=== PATIENT | female | born 2000 | race African-American/Black ===

== ENCOUNTER 2022-06-26 09:23 | Observation (INO) | payer OTHER ==
[~2022-06-26] VITALS: Ht 175.3 cm; Wt 77.5 kg
[~2022-06-26 09:23] MED LIST: ceFAZolin SOD 2 GM in IV 1 EA IV ONE
[2022-06-26 10:22] LABS: HEMATOCRIT 35.6 % (36.0-47.0); HEMOGLOBIN 10.8 g/dl (12.0-15.5); MEAN CORPUSCULAR HEMOGLOBIN 24.2 pg (27.0-33.0); MEAN CORPUSCULAR HGB CONC 30.3 g/dl (32.0-36.5); MEAN CORPUSCULAR VOLUME 79.8 fl (80.0-96.0); PLATELET COUNT, AUTOMATED 292 10^3/uL (150-450); RED BLOOD COUNT 4.46 10^6/uL (4.00-5.40); WHITE BLOOD COUNT 6.8 10^3/uL (4.0-10.0)
[2022-06-26 10:45] LABS: BLOOD UREA NITROGEN 13 MG/DL (7-18); CARBON DIOXIDE LEVEL 27 MEQ/L (21-32); CHLORIDE LEVEL 106 MEQ/L (98-107); CREATININE FOR GFR 0.66 MG/DL (0.55-1.30); GLOMERULAR FILTRATION RATE > 60.0 (>60); GLUCOSE, FASTING 90 MG/DL (70-100); SODIUM LEVEL 137 MEQ/L (136-145)
[2022-06-26] MEDS ORDERED: ROCURONIUM BROMIDE 50 MG/5 ML VIAL As Ordered ONE ×2 (11:02→15:50)
[2022-06-26] MEDS ORDERED: dexameTHASONE 4 MG/ML 1ML VIAL (J1100 PER 1MG) As Ordered ONE (11:02)
[2022-06-26] MEDS ORDERED: fentaNYL 250 MCG/5 ML INJECTION As Ordered ONE (11:02)
[2022-06-26] MEDS ORDERED: propofoL 200 MG/20 ML VIAL As Ordered ONE (11:02)
[2022-06-26] MEDS ORDERED: ONDANSETRON 4MG 2ML VIAL As Ordered ONE (11:02)
[2022-06-26] MEDS ORDERED: LIDOCAINE 2% 100MG/5ML SDV (FOR ANES.) As Ordered ONE (11:02)
[2022-06-26] MEDS ORDERED: MIDAZOLAM INJ 2MG/2ML VIAL (J2250 PER 1MG) As Ordered ONE (11:02)
[2022-06-26] MEDS ORDERED: METOCLOPRAMIDE INJ 10MG/2ML VIAL (J2765 PER 1) As Ordered ONE (11:12)
[2022-06-26] MEDS ORDERED: diphenhydrAMINE 50MG/ML VIAL (J1200) As Ordered ONE (11:12)
[2022-06-26] MEDS ORDERED: BUPIVACAINE HCL 0.25% 10ML VIAL As Ordered ONE (13:43)
[2022-06-26] MEDS ORDERED: BUPIVACAINE LIPOSOME/PF 1.3% 20ML VIAL (13.3MG/ML)(EXPAREL) As Ordered ONE (13:43)
[2022-06-26] MEDS ORDERED: GENTAMICIN SULF 80MG/2ML VIAL As Ordered ONE ×2 (13:44→15:58)
[2022-06-26] MEDS ORDERED: HEPARIN SOD (PORCINE) 5000UNITS/ML 1ML VIAL/SYRINGE As Ordered ONE (15:02)
[2022-06-26] MEDS ORDERED: ACETAMINOPHEN 1000MG 100ML IV BTL (OFIRMEV) (J0131 PER 10MG) As Ordered ONE (15:36)
[2022-06-26] MEDS ORDERED: HYDROmorphone HCL 2MG/ML 1ML VIAL As Ordered ONE (15:47)
[2022-06-26] MEDS ORDERED: SUGAMMADEX SODIUM 500 MG/5 ML VIAL (BRIDION) As Ordered ONE (15:47)
[2022-06-26] MEDS ORDERED: LABETALOL 100MG/20ML VIAL As Ordered ONE (16:32)
[2022-06-26] MEDS ORDERED: ESMOLOL INJ 100MG/10ML VIAL As Ordered ONE (17:11)
[2022-06-26] MEDS ORDERED: LR 1,000 ML IV SCH (18:45)
[2022-06-26] MEDS ORDERED: METOCLOPRAMIDE INJ 10MG/2ML VIAL (J2765 PER 1) IV PRN (18:45)
[2022-06-26] MEDS ORDERED: PROMETHAZINE 25MG/ML 1ML VIAL IV PRN (18:45)
[2022-06-26] MEDS ORDERED: HYDROMORPHONE HCL 0.5 MG/ 0.5 ML SYRINGE (J1170 PER 1) IV PRN (18:45)
[2022-06-26] MEDS ORDERED: fentaNYL 100 MCG/2 ML INJECTION IV PRN (18:45)
[2022-06-26] MEDS ORDERED: oxyCODONE 5MG TAB PO PRN (18:45)
[2022-06-26] MEDS ORDERED: ONDANSETRON 4MG 2ML VIAL IV PRN ×2 (18:45→19:10)
[2022-06-26] MEDS ORDERED: PERCOCET 5MG/325MG TAB PO PRN (19:10)
[2022-06-26] MEDS ORDERED: traMADol 50 MG TAB PO PRN (19:10)
[2022-06-26] MEDS ORDERED: ACETAMINOPHEN TAB 650MG DOSE (2X325MG) PO PRN (19:10)
[2022-06-26] MEDS ORDERED: ceFAZolin 1GM VIAL (J0690 PER 500MG) As Ordered ONE (19:29)
[2022-06-26] MEDS: ceFAZolin SOD 1 GM in D5W MINI-BAG PLUS 50 ML IV SCH (19:36)
[2022-06-26 20:39] VITALS: BP 117/55
[2022-06-26 21:03] VITALS: BP 127/68
[2022-06-26 21:34] VITALS: BP 128/74
[2022-06-26] MEDS ORDERED: HOME MED LIST COMPLETE! XX SCH (21:50)
[2022-06-26 23:15] VITALS: BP 111/56
[2022-06-27 00:07] VITALS: BP 112/53
[2022-06-27 01:07] VITALS: BP 107/56
[2022-06-27 02:00] VITALS: BP 117/58
[2022-06-27] MEDS: ceFAZolin SOD 1 GM in D5W MINI-BAG PLUS 50 ML IV SCH (03:15)
[2022-06-27] MEDS: LR 1,000 ML IV SCH ×2 (03:15→08:30)
[2022-06-27 05:51] VITALS: BP 126/60
[2022-06-27] MEDS ORDERED: OXYC1TAB23 PO (09:16)
[2022-06-27 10:00] VITALS: BP 125/61
== END 2022-06-27 14:35 | disposition home or self-care (01) ==
LOC: M SDC 09:23 → UNDOADMOB 09:24 → M ED INP 09:24 → M MS5PR 20:10
PROVIDERS: ADMIT Plastic Surgery Surgery of the Hand; ATTEND Plastic Surgery Surgery of the Hand
DX: N62 Hypertrophy of breast (principal); M54.6 Pain in thoracic spine; D50.9 Iron deficiency anemia, unspecified
CPT/HCPCS: 19318; 36415; 80048; 81025; 85027; 88305; 96365; 96366; C9290; J0131; J0690; J1100; J1170; J1200; J1580; J1644; J2250; J2405; J2765; J3010

== ENCOUNTER → 2023-03-29 | Outpatient (CLI) | payer OTHER ==
[~2023-03-29] MED LIST changes: +OXYC1TAB23 PO; -ceFAZolin SOD 2 GM in IV 1 EA IV ONE
== END ==
LOC: M RAD 15:45
PROVIDERS: ATTEND Advanced Practice Midwife
DX: Z34.92 Encounter for supervision of normal pregnancy, unspecified, second trimester (principal)

== ENCOUNTER 2023-08-07 16:53 | Outpatient (CLI) | payer OTHER ==
[~2023-08-07] VITALS: Ht 149.9 cm; Wt 79.1 kg
[2023-08-07] MEDS ORDERED: PRENTAB9 PO (17:23)
[2023-08-07] MEDS ORDERED: HOME MED LIST COMPLETE! XX SCH (17:25)
[2023-08-07 17:26] VITALS: BP 109/63
[2023-08-07] MEDS ORDERED: ACETAMINOPHEN 500 MG TAB PO ONE (17:50)
[2023-08-07] MEDS ORDERED: CYCLOBENZAPRINE 10MG TABLET PO ONE (20:00)
== END 2023-08-07 18:33 ==
LOC: M LDO 16:53
PROVIDERS: ATTEND Obstetrics & Gynecology
DX: O47.1 False labor at or after 37 completed weeks of gestation (principal); Z3A.38 38 weeks gestation of pregnancy
CPT/HCPCS: 59025; G0463

== ENCOUNTER 2023-08-15 01:50 | Inpatient (IN) | payer OTHER ==
[~2023-08-15] VITALS: Ht 149.9 cm; Wt 79.7 kg
[2023-08-15] VITALS (35 sets, daily range): BP systolic 93–133; BP diastolic 53–77; O2SAT 98–99
[~2023-08-15 01:50] MED LIST changes: +PRENTAB9 PO
[2023-08-15] MEDS ORDERED: LACTATED RINGER'S 1000 ML IV STA (02:07)
[2023-08-15] MEDS ORDERED: HOME MED LIST COMPLETE! XX SCH (02:10)
[2023-08-15] MEDS ORDERED: LR 1,000 ML IV SCH (02:10)
[2023-08-15] MEDS ORDERED: OXYTOCIN INJ 10UNITS/ML 1ML VIAL IM PRN (02:10)
[2023-08-15] MEDS ORDERED: OXYTOCIN DRIP 30 UNITS in IV 1 EA IV PRN ×6 (02:10)
[2023-08-15] MEDS ORDERED: CARBOPROST TROMETHAMINE 250 MCG/ML AMP IM PRN (02:10)
[2023-08-15] MEDS ORDERED: METHYLERGONOVINE MALEATE 0.2MG/ML 1ML VIAL IM PRN (02:10)
[2023-08-15] MEDS ORDERED: LIDOCAINE 1% MDV 20ML VIAL INFIL PRN (02:10)
[2023-08-15] MEDS ORDERED: TRANEXAMIC ACID INJection 1,000 MG in NS 100 ML IV PRN (02:10)
[2023-08-15 03:11] LABS: HEMATOCRIT 32.4 % (36.0-47.0); HEMOGLOBIN 10.2 g/dl (12.0-15.5); MEAN CORPUSCULAR HEMOGLOBIN 24.1 pg (27.0-33.0); MEAN CORPUSCULAR HGB CONC 31.5 g/dl (32.0-36.5); MEAN CORPUSCULAR VOLUME 76.6 fl (80.0-96.0); PLATELET COUNT, AUTOMATED 220 10^3/uL (150-450); RED BLOOD COUNT 4.23 10^6/uL (4.00-5.40); WHITE BLOOD COUNT 9.8 10^3/uL (4.0-10.0)
[2023-08-15] MEDS ORDERED: NALOXONE INJ 0.4MG/1ML VIAL IV PRN (04:10)
[2023-08-15] MEDS ORDERED: LR 500 ML IV PRN (04:10)
[2023-08-15] MEDS ORDERED: EPIDURAL/PCA KEYS XX PRN (04:10)
[2023-08-15] MEDS ORDERED: diphenhydrAMINE 50MG/ML VIAL IV PRN (04:10)
[2023-08-15] MEDS ORDERED: ePHEDrine SULFATE 25 MG/5 ML(5MG/ML) SYRINGE IVP PRN (04:10)
[2023-08-15] MEDS ORDERED: FENTANYL/ROPIVACAINE/NACL BAG 100 ML EPIDURAL SCH (04:10)
[2023-08-15] MEDS ORDERED: ONDANSETRON 4MG 2ML VIAL IV PRN ×2 (04:10→07:40)
[2023-08-15] MEDS ORDERED: DOCUSATE SODIUM 100MG CAPSULE PO PRN (07:40)
[2023-08-15] MEDS ORDERED: MOM 30ML SUSPENSION UDC PO PRN (07:40)
[2023-08-15] MEDS ORDERED: METHYLERGONOVINE MALEATE 0.2 MG TAB PO PRN (07:40)
[2023-08-15] MEDS ORDERED: OXYTOCIN DRIP 30 UNITS in IV 1 EA IV SCH ×4 (07:40)
[2023-08-15] MEDS ORDERED: DIBUCAINE 1% OINTMENT 30GM TOP PRN (07:40)
[2023-08-15] MEDS ORDERED: IBUPROFEN 600MG TAB PO PRN (07:40)
[2023-08-15] MEDS ORDERED: RHOGAM 300MCG (1500IU) INJ IM SCH (07:40)
[2023-08-15] MEDS ORDERED: ACETAMINOPHEN 500 MG TAB PO PRN (07:40)
[2023-08-15] MEDS ORDERED: ACETAMINOPHEN TAB 650MG DOSE (2X325MG) PO PRN (07:40)
[2023-08-15] MEDS ORDERED: IBUPROFEN 800 MG TAB PO PRN (07:40)
[2023-08-15] MEDS: LR 1,000 ML IV SCH ×2 (07:40→15:40)
[2023-08-15] MEDS: PRENATAL VITAMINS CHEWABLE TABLET PO SCH (11:56)
[2023-08-15] MEDS ORDERED: PRENTAB9 PO (16:04)
[2023-08-16 06:00] VITALS: BP 105/58
[2023-08-16] MEDS ORDERED: BOOSTRIX VACCINE (TETANUS/DIPHTH/ACEL. PERTUSSIS) 0.5ML SYR IM.IMMUN ONE (09:00)
[2023-08-16] MEDS: PRENATAL VITAMINS CHEWABLE TABLET PO SCH (09:00)
[2023-08-17] MEDS ORDERED: MEASLES,MUMPS,RUBELLA VACCINE INJ (MMR-II) SC.IMMUN ONE (09:00)
== END 2023-08-16 13:17 | disposition home or self-care (01) | DRG 807 ==
LOC: M LDO 01:50 → M LDI 02:49 → M OBS 10:15
PROVIDERS: ADMIT Obstetrics & Gynecology; ATTEND Obstetrics & Gynecology
PROC: 10E0XZZ Delivery of Products of Conception, External Approach (ICD-10-PCS; principal; 2023-08-15)
PROC: 0UQMXZZ Repair Vulva, External Approach (ICD-10-PCS; 2023-08-15)
DX: O99.02 Anemia complicating childbirth (principal); Z37.0 Single live birth; D64.9 Anemia, unspecified; Z3A.39 39 weeks gestation of pregnancy; O71.82 Other specified trauma to perineum and vulva; O99.214 Obesity complicating childbirth; E66.9 Obesity, unspecified; O99.52 Diseases of the respiratory system complicating childbirth; J45.909 Unspecified asthma, uncomplicated